=== PATIENT | male | born 1950 | race Caucasian/White ===

== ENCOUNTER 2017-01-04 22:33 | Emergency (ER) | payer MEDICARE, OTHER ==
[2017-01-04] MEDS ORDERED: IOPAMIDOL 370 (76%) IV.SOLN 150 ML IV ONE (22:34)
[2017-01-04 23:21] LABS: ABSOLUTE NEUTROPHIL COUNT 17.7 K/mm3 (1.8-7.7); BASO # 0.1 K/mm3 (0.0-0.2); BASO % 0.3 % (0.2-1.0); EOS # 0.1 (0.0-0.5); EOS % 0.3 % (0.9-2.9); HEMATOCRIT 51.5 % (32.0-52.0); HEMOGLOBIN 18.1 gm/l (14.0-18.0); IMM NEUT # 0.1 K/mm3 (0-0.2); IMM NEUT% 0.5 % (0-1); LYMPH % 4.7 % (15-45); MEAN CELL VOLUME 87.6 fl (80.0-94.0); MEAN CORPUSCULAR HEMOGLOBIN 30.8 pg (27.0-31.0); MEAN CORPUSCULAR HGB CONC 35.1 g/dl (33.0-37.0); MONO # 1.4 (0.0-0.8); NEUT % 87.2 % (43-75); PLATELET COUNT 157 K/mm3 (130-400); RED CELL DISTRIBUTION WIDTH 12.4 % (11.5-14.5)
[2017-01-04 23:50] LABS: ALB/GLOB RATIO 1.3 (>1.0); ALBUMIN 5.7 gm/dL (3.5-5.7)
[2017-01-04 23:51] LABS: BAND 0 % (0-10); BASOPHIL 0 % (0-1); EOSINOPHIL 0 % (1-3); LYMPHOCYTE 5 % (15-45); MONOCYTE 6 % (4-12); NEUTROPHILS 89 % (43-75); PLATELET ESTIMATE NORMAL (NORMAL); TOTAL CELLS COUNTED 100
[2017-01-04] MEDS ORDERED: PROCHLORPERAZINE 5 MG/ML 2 ML VIAL ONE (23:55)
[2017-01-04] MEDS ORDERED: LACTATED RINGERS 1,000 ML ONE (23:55)
[2017-01-05 00:57] LABS: MAGNESIUM 2.2 mg/dL (1.9-2.7)
[2017-01-05 02:02] LABS: CALCIUM 9.7 mg/dL (8.6-10.3)
[2017-01-05] MEDS ORDERED: LACTATED RINGERS 1,000 ML ONE (02:29)
[2017-01-05 02:40] LABS: SPECIFIC GRAVITY 1.025 (1.001-1.030); URINE APPEARANCE SL CLOUDY; URINE BILIRUBIN 1+ (NEGATIVE); URINE BLOOD NEGATIVE (NEGATIVE); URINE COLOR AMBER; URINE GLUCOSE (UA) NEGATIVE (NEGATIVE); URINE LEUKOCYTE ESTERASE TRACE (NEGATIVE); URINE NITRITE NEGATIVE (NEGATIVE); URINE PROTEIN 1+ (NEGATIVE); URINE UROBILINOGEN NORMAL (0-1 mg/dl)
[2017-01-05 02:54] LABS: URINE BACTERIA TRACE; URINE CRYSTALS 5-8 CA OXALATE /hpf; URINE RBC 0-1 /hpf
[2017-01-05 02:55] LABS: URINE AMORPHOUS SEDIMENT 1+; URINE CASTS >100 HYALINE /lpf; URINE MUCUS 4+
[2017-01-05 04:42] LABS: ABSOLUTE NEUTROPHIL COUNT 10.6 K/mm3 (1.8-7.7); BASO % 0.1 % (0.2-1.0); HEMATOCRIT 37.4 % (32.0-52.0); IMM NEUT # 0.1 K/mm3 (0-0.2); IMM NEUT% 0.4 % (0-1); LYMPH % 7.8 % (15-45); MEAN CORPUSCULAR HEMOGLOBIN 30.6 pg (27.0-31.0); MEAN CORPUSCULAR HGB CONC 34.8 g/dl (33.0-37.0); MEAN PLATELET VOLUME 13.1 fl (7.4-10.4); MONO # 0.5 (0.0-0.8); MONO % 4.5 % (4-12); NEUT % 87.2 % (43-75); PLATELET COUNT 118 K/mm3 (130-400); RED CELL DISTRIBUTION WIDTH 12.6 % (11.5-14.5)
--- NOTE | 2017-01-05 07:49 | RAD ---
History: Vomiting and diarrhea. Comparison: None. Technique: 2 views Findings: The soft tissue and bony structures are unremarkable. The heart size is appropriate. No infiltrate, effusion or pneumothorax is observed. The hilar and mediastinal structures are normal. Impression: 1. No active intra-thoracic disease.
--- NOTE | 2017-01-05 08:02 | CT ---
Exam Type: ABD/PELVIS W/ CON Date and Time: 01/05/2017 2:33 AM Clinical information: Vomiting and diarrhea. Weakness. Comparison: None Procedure: Imaging device: [employer] Aqu[employer] [address] scanner 1 mm axial images were obtained through the abdomen and pelvis. Stacked reconstructed 3, 4 and 5 mm images were photographed in the axial coronal and sagittal planes. No oral contrast was utilized for this examination. 125 ml of Isovue-370 was injected intravenously. Exam: with intravenous contrast. FINDINGS: Lung bases: Bibasilar atelectasis is present. No effusion or pneumothorax is visualized. Liver: The liver appears to be of diffusely decreased attenuation when compared to the spleen. No focal mass or evidence of intrahepatic biliary dilatation is observed. Spleen: The spleen is homogeneous and does not appear to be enlarged. Gallbladder: Normal without enlargement or evidence of adjacent inflammatory changes. Pancreas: Normal without enlargement or evidence of adjacent inflammatory changes. Adrenal glands: Normal without enlargement or evidence of adjacent inflammatory changes. Abdominal aorta: Mild atherosclerotic vascular calcification is noted with no focal aneurysm visualized. Kidneys: The kidneys appear to be symmetric in size with no perinephric inflammatory changes are identified. No current findings of hydronephrosis are seen. Bowel structures: There are fluid-filled loops of large and small bowel throughout the abdomen with possible mild enhancement of the bowel wall possibly reflecting a diffuse enteritis. No current evidence of obstruction is visualized. No free fluid or mesenteric inflammatory changes are visualized. Appendix: The appendix is well-visualized and appears to be of normal caliber. No periappendiceal inflammatory changes or CT findings of appendicitis are currently observed. Bladder: The bladder is partially decompressed with diffuse wall thickening observed. Hernia: Bilateral fat filled inguinal hernias are present, left greater than right. There is also an umbilical hernia observed. Adenopathy: No significant enlarged adenopathy is visualized. Osseous structures: No discrete osseous abnormalities are identified. Pelvic structures: No discrete pelvic abnormalities are visualized in this examination. IMPRESSION: 1. Fluid-filled loops of large and small bowel throughout the abdomen with mild bowel wall enhancement which may reflect findings of a diffuse enteritis. No current evidence of obstruction is visualized. 2. A normal appearance of the appendix without current evidence of appendicitis. 3. Findings most commonly associated with diffuse fatty infiltration of the liver. 4. Circumferential thickening of the bladder wall which may be at least in part due to partial decompression. A component of underlying cystitis cannot be excluded. 5. Bilateral fat filled inguinal hernias, left greater than right with a fat filled umbilical hernia. The findings were called to the emergency room at 0321 hours, 01/05/2017, by [facility].
== END 2017-01-05 05:31 | disposition home or self-care (01) ==
LOC: ED 22:33
DX: R11.2 Nausea with vomiting, unspecified (principal); R19.7 Diarrhea, unspecified; R10.9 Unspecified abdominal pain; E11.9 Type 2 diabetes mellitus without complications; Z79.84 Long term (current) use of oral hypoglycemic drugs
CPT/HCPCS: 83605 ×2; 83690; 85025 ×2; 80048 ×2; 80053; 83735; 81001; 71020; 74177; 99284 ×2; 96374; 96361 ×2; 93005; J0780; J7120 ×2; Q9967

== ENCOUNTER 2017-01-20 13:32 | Emergency (ER) | payer MEDICARE ==
[2017-01-20] MEDS ORDERED: ONDANSETRON 4 MG/2ML 2 ML VIAL ONE (14:26)
[2017-01-20] MEDS ORDERED: KETOROLAC TROMETHAMINE 15 MG/ML VIAL ONE (14:26)
[2017-01-20 14:27] LABS: ABSOLUTE NEUTROPHIL COUNT 11.7 K/mm3 (1.8-7.7); BASO # 0.1 K/mm3 (0.0-0.2); BASO % 0.3 % (0.2-1.0); EOS % 0.1 % (0.9-2.9); HEMATOCRIT 52.8 % (32.0-52.0); HEMOGLOBIN 18.8 gm/l (14.0-18.0); IMM NEUT # 0.1 K/mm3 (0-0.2); IMM NEUT% 0.4 % (0-1); LYMPH # 3.1 (1.0-4.8); LYMPH % 19.9 % (15-45); MEAN CELL VOLUME 87.4 fl (80.0-94.0); MEAN CORPUSCULAR HEMOGLOBIN 31.1 pg (27.0-31.0); MEAN CORPUSCULAR HGB CONC 35.6 g/dl (33.0-37.0); MEAN PLATELET VOLUME 12.9 fl (7.4-10.4); MONO # 0.6 (0.0-0.8); MONO % 3.6 % (4-12); NEUT % 75.7 % (43-75); PLATELET COUNT 200 K/mm3 (130-400); RED CELL DISTRIBUTION WIDTH 12.5 % (11.5-14.5)
[2017-01-20 14:36] LABS: ALB/GLOB RATIO 1.2 (>1.0); ALBUMIN 5.5 gm/dL (3.5-5.7)
[2017-01-20] MEDS ORDERED: SODIUM CHLORIDE 0.9% 1,000 ML ONE ×2 (14:49→16:05)
== END 2017-01-20 17:07 | disposition home or self-care (01) ==
LOC: ED 13:32
DX: R11.10 Vomiting, unspecified (principal); R19.7 Diarrhea, unspecified; R10.10 Upper abdominal pain, unspecified; I10 Essential (primary) hypertension; E11.9 Type 2 diabetes mellitus without complications; Z79.84 Long term (current) use of oral hypoglycemic drugs
CPT/HCPCS: 83605; 83690; 85025; 87040; 80053; 96375; 99284; 96374; 96361; 99283; J1885; J2405; J7030 ×2